=== PATIENT | female | born 1980 | race Caucasian/White ===

== ENCOUNTER → 2017-04-05 | Outpatient (CLI) | payer MEDICAID ==
--- NOTE | 2017-04-05 11:22 | MM ---
Reason for exam: screening (asymptomatic). Baseline mammogram. History: Family history of breast cancer in maternal grandmother at age 20. Benign excisional biopsy of the left breast, 2008. Physical Findings: Nurse did not find any significant physical abnormalities on exam. MG 3D Screening Mammo W/Cad Bilateral CC and MLO view(s) were taken. There are scattered fibroglandular densities. There is no discrete abnormality. These results were verbally communicated with the patient and result sheet given to the patient on 04/05/17. ASSESSMENT: Negative, BI-RAD 1 RECOMMENDATION: Routine screening mammogram of both breasts at age 38.
== END | disposition home or self-care (01) ==
LOC: RADMAMWWP 09:17
PROVIDERS: ATTEND Family Medicine
DX: Z12.31 Encounter for screening mammogram for malignant neoplasm of breast (principal); Z80.3 Family history of malignant neoplasm of breast
CPT/HCPCS: 77063; G0202

== ENCOUNTER → 2018-03-26 | Outpatient (CLI) | payer MEDICAID ==
[2018-03-26 19:10] LABS: Basophils % (A) 1 %; Eosinophils # (A) 0.1 k/uL (0-0.7); Eosinophils % (A) 3 %; HCT 42.6 % (34.0-46.0); HGB 14.4 gm/dL (11.4-16.0); Lymphocytes # (A) 1.3 k/uL (1.0-4.8); Lymphocytes % (A) 29 %; MCH 30.5 pg (25.0-35.0); MCHC 33.7 g/dL (31.0-37.0); MCV 90.4 fL (80.0-100.0); Mean Platelet Volume 8.9; Monocytes # (A) 0.2 k/uL (0-1.0); Monocytes % (A) 4 %; Neutrophils # (A) 2.9 k/uL (1.3-7.7); Neutrophils % (A) 63 %; Platelet Count 191 k/uL (150-450); RBC 4.71 m/uL (3.80-5.40); RDW 12.3 % (11.5-15.5); WBC 4.6 k/uL (3.8-10.6)
[2018-03-26 19:16] LABS: ALT 19 U/L (9-52); AST 20 U/L (14-36); Albumin 4.2 g/dL (3.5-5.0); Alkaline Phosphatase 52 U/L (38-126); Anion Gap 13 mmol/L; Blood Urea Nitrogen 11 mg/dL (7-17); Calcium 9.7 mg/dL (8.4-10.2); Carbon Dioxide 28 mmol/L (22-30); Chloride 103 mmol/L (98-107); Cholesterol 192 mg/dL (<200); Glucose 75 mg/dL (74-99); HDL Cholesterol 49 mg/dL (40-60); LDL Cholesterol,Calculated 110 mg/dL (0-99); Potassium 4.4 mmol/L (3.5-5.1); Sodium 144 mmol/L (137-145); Total Bilirubin 0.6 mg/dL (0.2-1.3); Total Protein 6.7 g/dL (6.3-8.2); Triglycerides 165 mg/dL (<150)
[2018-03-26 19:29] LABS: T4, Free (Free Thyroxine) 1.12 ng/dL (0.78-2.19)
== END | disposition home or self-care (01) ==
LOC: MMGSC 10:36
PROVIDERS: ATTEND Family Medicine
DX: Z00.00 Encounter for general adult medical examination without abnormal findings (principal)
CPT/HCPCS: 36415; 80053; 80061; 84439; 84443; 85025

== ENCOUNTER → 2019-09-21 | Outpatient (CLI) | payer MEDICAID ==
--- NOTE | 2019-09-22 10:27 | MM ---
Reason for exam: screening (asymptomatic). Last mammogram was performed 2 years and 6 months ago. History: Family history of breast cancer in maternal grandmother at age 20. Benign excisional biopsy of the left breast, 2008. Physical Findings: A clinical breast exam by your physician is recommended on an annual basis and results should be correlated with mammographic findings. MG 3D Screening Mammo W/Cad Bilateral CC and MLO view(s) were taken. Prior study comparison: April 05, 2017, bilateral MG 3d screening mammo w/cad. The breast tissue is heterogeneously dense. This may lower the sensitivity of mammography. No suspicious abnormality. No significant changes when compared with prior studies. ASSESSMENT: Negative, BI-RAD 1 RECOMMENDATION: Routine screening mammogram of both breasts in 1 year.
== END | disposition home or self-care (01) ==
LOC: RADMAMWWP 10:27
PROVIDERS: ATTEND Family Medicine
DX: Z12.31 Encounter for screening mammogram for malignant neoplasm of breast (principal)
CPT/HCPCS: 77063; 77067

== ENCOUNTER → 2020-12-09 | Outpatient (CLI) | payer MEDICAID ==
--- NOTE | 2020-12-12 09:39 | MM ---
Reason for exam: screening (asymptomatic). Last mammogram was performed 1 year and 3 months ago. History: Family history of breast cancer in maternal grandmother at age 20. Retro-pectoral silicone gel implants in both breasts, December 2019. Benign excisional biopsy of the left breast, 2008. Took hormonal contraceptives for 10 years. Physical Findings: A clinical breast exam by your physician is recommended on an annual basis and results should be correlated with mammographic findings. MG 3D Screen Mammo Imp/Cad Bilateral CC, MLO, and ID view(s) were taken. Prior study comparison: September 21, 2019, bilateral MG 3d screening mammo w/cad. April 05, 2017, bilateral MG 3d screening mammo w/cad. The breast tissue is extremely dense which could obscure a lesion on mammography. There is no discrete abnormality. Bilateral subpectoral implants redemonstrated. ASSESSMENT: Benign, BI-RAD 2 RECOMMENDATION: Routine screening mammogram of both breasts in 1 year.
== END | disposition home or self-care (01) ==
LOC: RADMAMWWP 09:32
PROVIDERS: ATTEND Family Medicine
DX: Z12.31 Encounter for screening mammogram for malignant neoplasm of breast (principal); Z98.82 Breast implant status
CPT/HCPCS: 77063; 77067

== ENCOUNTER → 2020-12-30 | Outpatient (CLI) | payer MEDICAID ==
[2020-12-30 14:18] LABS: Basophils % (A) 1 %; Eosinophils # (A) 0.1 k/uL (0-0.7); Eosinophils % (A) 1 %; HCT 39.7 % (34.0-46.0); HGB 13.3 gm/dL (11.4-16.0); Lymphocytes # (A) 1.8 k/uL (1.0-4.8); Lymphocytes % (A) 28 %; MCH 31.4 pg (25.0-35.0); MCHC 33.4 g/dL (31.0-37.0); MCV 93.9 fL (80.0-100.0); Mean Platelet Volume 8.4; Monocytes # (A) 0.2 k/uL (0-1.0); Monocytes % (A) 3 %; Neutrophils # (A) 4.1 k/uL (1.3-7.7); Neutrophils % (A) 65 %; Platelet Count 174 k/uL (150-450); RBC 4.23 m/uL (3.80-5.40); RDW 12.3 % (11.5-15.5); WBC 6.3 k/uL (3.8-10.6)
== END | disposition home or self-care (01) ==
LOC: LABWHC1 12:27
PROVIDERS: ATTEND Obstetrics & Gynecology
DX: Z01.818 Encounter for other preprocedural examination (principal); N92.1 Excessive and frequent menstruation with irregular cycle
CPT/HCPCS: 85025

== ENCOUNTER 2021-01-17 06:31 | Day surgery (SDC) | payer MEDICAID ==
[2021-01-13 09:08] VITALS: BMI 21.7
[~2021-01-17 06:31] MED LIST: DEXAMETHASONE SOD PHOSPHATE 4 MG/ML 1 ML VIAL IV ONE; LACTATED RINGERS 1,000 ML IV SCH; LIDOCAINE 1% (10MG/ML) FOR IV START INTRADERMA PRN; ONDANSETRON 4 MG/2 ML VIAL IVP ONE; Pre Op ABX Message 1 EACH MISC MISCELLANE ONE
[2021-01-17] MEDS ORDERED: HYDROmorphone 0.5 MG/0.5 ML SYRINGE IVP PRN (07:00)
[2021-01-17] MEDS ORDERED: fentaNYL (PF) 50 MCG/ML 2 ML AMP IV PRN (07:00)
[2021-01-17] MEDS ORDERED: LIDOCAINE 1% INJ 10MG/ML (20 ML MDV) ONE (07:21)
[2021-01-17] MEDS: MIDAZOLAM 2 MG/2 ML VIAL IV PRN ×2 (07:21→07:24)
[2021-01-17] MEDS ORDERED: PROPOFOL 10 MG/ML 20 ML VIAL IV ONE (07:21)
[2021-01-17] MEDS ORDERED: KETOROLAC 15 MG/ML 1 ML VIAL ONE (07:21)
[2021-01-17] MEDS ORDERED: fentaNYL (PF) 50 MCG/ML 2 ML AMP ONE (07:21)
[2021-01-17] MEDS ORDERED: LIDOCAINE 1%-EPI 1:100,000 20 ML VIAL SUBMUCOSAL ONE (07:37)
--- NOTE | 2021-01-17 07:56 | P.OP ---
Date of Procedure: 01/17/21 Preoperative Diagnosis: Menometrorrhagia Postoperative Diagnosis: Menometrorrhagia Procedure(s) Performed: Diagnostic hysteroscopy with NovaSure endometrial ablation Anesthesia: MAC Surgeon: Anamaria Nuñez Estimated Blood Loss (ml): 5 IV fluids (ml): 400 Urine output (ml): 25 Pathology: none sent Condition: stable Disposition: PACU Operative Findings: Severely retroverted uterus. Benign-appearing endometrium with no gross i ntracavitary lesions. Description of Procedure: After the patient was met in the preoperative holding area and all questions were answered, she was taken to the operating room where anesthetic was administered without incident. Appropriate timeout procedure was undertaken. She was in positioned, prepped and draped in the dorsal lithotomy position. Bladder was drained for a small amount of clear urine. Exam under anesthetic was performed and the uterus was noted to be significantly retroverted. Speculum was then placed in the vagina and the cervix was grasped anteriorly with a single-tooth tenaculum. A fair amount of traction was placed on the cervix to correct the retroversion prior to instrumentation. A paracervical block with lidocaine plus epinephrine was placed. The uterus was then sounded to 9 cm. The cervix was then carefully dilated using Hegar dilators to allow for passage of the diagnostic hysteroscope. The hysteroscope was introduced and benign-appearing fluffy endometrium was noted. The hysteroscope was removed and the cervix was further dilated to allow for introduction of the NovaSure ablation device. The device was inserted with a cavity length of 5.5 cm, width of 3.6 cm. Cavity assessment was passed without alarm. The device was enabled her treatment cycle of 51 seconds at a power of 109 W. Following cessation of the treatment cycle the device was removed. The hysteroscope was reintroduced and complete desiccation of the endometrium was appreciated. Hysteroscope was removed and the tenaculum was removed. The cervix was observed and no active bleeding was noted. Speculum was removed from the vagina. Patient was awoken from anesthetic without incident and transported to the recovery area in good condition. All counts reported to me as correct by the operating room staff.
[2021-01-17 08:09] VITALS: TEMP 97.3
[2021-01-17 08:58] VITALS: RESP 20
[2021-01-17 09:20] VITALS: BP 98/69; PULSE 78
== END 2021-01-17 10:09 | disposition home or self-care (01) ==
LOC: OR 06:31
PROVIDERS: ATTEND Obstetrics & Gynecology
DX: N92.1 Excessive and frequent menstruation with irregular cycle (principal); N85.4 Malposition of uterus; F98.8 Other specified behavioral and emotional disorders with onset usually occurring in childhood and adolescence; Z88.1 Allergy status to other antibiotic agents; Z79.899 Other long term (current) drug therapy; Z98.51 Tubal ligation status; Z98.82 Breast implant status; Z98.890 Other specified postprocedural states; Z88.5 Allergy status to narcotic agent
CPT/HCPCS: 81025; 58563; J2250; J1100; J2405; J2001; J3010; J1885; J2704; J1170

== ENCOUNTER → 2022-01-12 | Outpatient (CLI) | payer MEDICAID ==
--- NOTE | 2022-01-15 12:00 | MM ---
Reason for exam: screening (asymptomatic). Last mammogram was performed 1 year and 1 month ago. History: Family history of breast cancer in maternal grandmother at age 20. Retro-pectoral silicone gel implants in both breasts, December 2019. Benign excisional biopsy of the left breast, 2008. Took hormonal contraceptives for 10 years. Physical Findings: A clinical breast exam by your physician is recommended on an annual basis and results should be correlated with mammographic findings. MG 3D Screen Mammo Imp/Cad Bilateral CC, MLO, and ID view(s) were taken. Prior study comparison: December 09, 2020, bilateral MG 3d screen mammo imp/cad. September 21, 2019, bilateral MG 3d screening mammo w/cad. The breast tissue is extremely dense which could obscure a lesion on mammography. There is no discrete abnormality. Bilateral subpectoral implants redemonstrated. ASSESSMENT: Benign, BI-RAD 2 RECOMMENDATION: Routine screening mammogram of both breasts in 1 year. Some consider bilateral ultrasound surveillance in patient with extremely dense fibroglandular tissue.
== END | disposition home or self-care (01) ==
LOC: RADMAMWWP 09:03
PROVIDERS: ATTEND Family Medicine
DX: Z12.31 Encounter for screening mammogram for malignant neoplasm of breast (principal)
CPT/HCPCS: 77063; 77067

== ENCOUNTER → 2024-05-22 | Day surgery (SDC) | payer OTHER ==
[2024-05-19 10:19] VITALS: BMI 24.1
[~2024-05-22] MED LIST changes: -DEXAMETHASONE SOD PHOSPHATE 4 MG/ML 1 ML VIAL IV ONE; -LACTATED RINGERS 1,000 ML IV SCH; -LIDOCAINE 1% (10MG/ML) FOR IV START INTRADERMA PRN; -ONDANSETRON 4 MG/2 ML VIAL IVP ONE; +PROPOFOL 10 MG/ML 20 ML VIAL IV ONE; -Pre Op ABX Message 1 EACH MISC MISCELLANE ONE
[2024-05-22] MEDS: IV FLUID CONTINUATION 1,000 ML IV ONE (13:21)
[2024-05-22] MEDS: LACTATED RINGERS 1,000 ML IV SCH (13:29)
[2024-05-22 13:36] VITALS: RESP 16; TEMP 98
[2024-05-22] MEDS: KETOROLAC 15 MG/ML 1 ML VIAL IVP STA (15:18)
--- NOTE | 2024-05-22 15:50 | P.PCN ---
Date of Procedure: 05/22/24 Procedure(s) Performed: BRIEF HISTORY: Patient is a 43-year-old pleasant white female scheduled for an elective colonoscopy as a part of screening for colon cancer. PROCEDURE PERFORMED: Colonoscopy. PREOPERATIVE DIAGNOSIS: Screening for colon cancer. IV sedation per Anesthesia. PROCEDURE: After informed consent was obtained, the patient, was brought into the endoscopy unit. IV sedation was administered by Anesthesia under continuous monitoring. Digital rectal examination was normal. Initially the Olympus CF-160 flexible video colonoscope was then inserted in the rectum, gradually advanced into the cecum without any difficulty. Careful examination was performed as the scope was gradually being withdrawn. Ileocecal valve and the appendiceal orifice were visualized and appeared normal. Prep was excellent. Mucosa of the cecum, ascending colon, transverse colon, descending colon, sigmoid colon, and rectum appeared normal. Retroflexion was performed in the rectum and no lesions were seen. The patient tolerated the procedure well. IMPRESSION: Normal-appearing colon from rectum to cecum with no evidence of colorectal neoplasia. RECOMMENDATIONS: Findings of this examination were discussed with the patient as well as the family.. He was advised to have repeat screening colonoscopy in 10 years.
[2024-05-22 16:11] VITALS: BP 116/76; PULSE 72
== END ==
LOC: ORWHC2ENDO 13:02
PROVIDERS: ATTEND Internal Medicine Gastroenterology
DX: Z12.11 Encounter for screening for malignant neoplasm of colon (principal); F90.9 Attention-deficit hyperactivity disorder, unspecified type; Z88.5 Allergy status to narcotic agent; Z88.1 Allergy status to other antibiotic agents; Z79.899 Other long term (current) drug therapy; Z88.8 Allergy status to other drugs, medicaments and biological substances; Z98.890 Other specified postprocedural states
CPT/HCPCS: 81025; 45378; J1885; J2704

== ENCOUNTER → 2025-02-05 | Outpatient (CLI) | payer BC ==
--- NOTE | 2025-02-05 10:37 | MM ---
Reason for Exam: Screening (asymptomatic). Last screening mammogram was performed 12 month(s) ago. Patient History: Menarche at age 9. First Full-Term at age 28. Late child-bearing (after 28). Perimenopausal. Patient has history of breast feeding. Patient used Hormonal Contraceptives for 10 years. 2008, Benign Excisional Biopsy on the left side. 12/2019, Bilateral Implants. Maternal grandmother had breast cancer, age 20. Risk Values: Ana Maria 5 year model risk: 1.9%. NCI Lifetime model risk: 16.7%. Prior Study Comparison: 01/12/2022 Bilateral Screening Mammogram, [facility]. 01/25/2023 Bilateral MG 3D screen mammo imp/cad., [facility]. 01/31/2024 Bilateral MG 3D screen mammo imp/cad., [facility]. Tissue Density: The breasts are heterogeneously dense, which may obscure small masses. Findings: Analyzed By CAD. Bilateral retropectoral silicone implants are redemonstrated. Faint grouped calcifications outer right cc view anterior to middle depth not well seen previously. Not clearly identified on the MLO view. Further magnification views recommended. Otherwise, no significant change. Overall Assessment: Incomplete: need additional imaging evaluation, BI-RAD 0 Management: Special View Mammogram of the right breast. [facility] will attempt to contact patient to return for supplemental views. [facility], , 02/05/2025 10:34 AM. Electronically signed and approved by: Karri Adames M.D. Radiologist
== END | disposition home or self-care (01) ==
LOC: RADMAMWWP 09:54
PROVIDERS: ATTEND Family Medicine
DX: Z12.31 Encounter for screening mammogram for malignant neoplasm of breast (principal); R92.333 Mammographic heterogeneous density, bilateral breasts; Z92.0 Personal history of contraception; Z80.3 Family history of malignant neoplasm of breast
CPT/HCPCS: 77063; 77067

== ENCOUNTER → 2025-02-12 | Outpatient (CLI) | payer BC ==
--- NOTE | 2025-02-12 09:29 | MM ---
Reason for Exam: Additional evaluation requested from prior study. Last screening mammogram was performed less than 1 month ago. Patient History: Menarche at age 9. First Full-Term at age 28. Late child-bearing (after 28). Perimenopausal. Patient has history of breast feeding. Patient used Hormonal Contraceptives for 10 years. 2008, Benign Excisional Biopsy on the left side. 12/2019, Bilateral Implants. Maternal grandmother had breast cancer, age 20. Risk Values: Ana Maria 5 year model risk: 1.9%. NCI Lifetime model risk: 16.7%. Tissue Density: Right: The breasts are heterogeneously dense, which may obscure small masses. Findings: Analyzed By CAD. Layering calcifications are seen upper outer right breast compatible with milk of calcium. No suspicious mitral consultations are present. Overall Assessment: Benign, BI-RAD 2 Management: Screening Mammogram of both breasts in 1 year. . Results were given to the patient verbally at the time of exam. Patient should continue monthly self-breast exams. A clinical breast exam by your physician is recommended on an annual basis. This exam should not preclude additional follow-up of suspicious palpable abnormalities. Note on Ana Maria scores and lifetime risk: 1. A Ana Maria score greater than 3% is considered moderate risk. If this is the case, consider specialist referral to assess eligibility for a risk reducing agent. 2. If overall lifetime risk for the development of breast cancer is 20% or higher, the patient may qualify for future screening with alternating mammogram and breast MRI. [facility], , 02/12/2025 8:39 AM. Electronically signed and approved by: Sanjay Chun M.D. Radiologis
== END | disposition home or self-care (01) ==
LOC: RADMAMWWP 08:06
PROVIDERS: ATTEND Family Medicine
DX: R92.8 Other abnormal and inconclusive findings on diagnostic imaging of breast (principal); R92.333 Mammographic heterogeneous density, bilateral breasts; Z80.3 Family history of malignant neoplasm of breast; Z92.0 Personal history of contraception
CPT/HCPCS: 77061; 77065